=== PATIENT | male | born 1970 | race African-American/Black ===

== ENCOUNTER 2020-11-30 12:14 | Emergency (ER) | payer OTHER, SELFPAY ==
[2020-11-30 12:27] VITALS: BP 117/80; PULSE 68; RESP 16; TEMP 36.2; O2SAT 100
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
== END 2020-11-30 13:28 | disposition home or self-care (01) ==
PROVIDERS: Emergency Provider Registered Nurse
DX: H00.011 Hordeolum externum right upper eyelid (principal)
CPT/HCPCS: 99213; G0463

== ENCOUNTER 2020-12-09 13:30 | Emergency (ER) | payer OTHER, SELFPAY ==
[2020-12-09 14:33] VITALS: BP 138/86; PULSE 66; RESP 16; TEMP 36.5; O2SAT 100
--- NOTE | 2020-12-09 17:14 | PC.NURSE ---
PT LEFT STATING THAT HE HAS WAITED 4 HRS, AND THAT'S CRAZY.
== END 2020-12-09 17:14 | disposition left against medical advice (07) ==
DX: H00.011 Hordeolum externum right upper eyelid (principal)
CPT/HCPCS: 99199

== ENCOUNTER 2022-07-03 08:16 | Emergency (ER) | payer OTHER, SELFPAY ==
[2022-07-03 08:31] VITALS: BP 131/100; PULSE 87; RESP 16; TEMP 36.7; O2SAT 99
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
== END 2022-07-03 09:09 | disposition home or self-care (01) ==
PROVIDERS: Emergency Provider Nurse Practitioner Family
DX: K52.9 Noninfective gastroenteritis and colitis, unspecified (principal)
CPT/HCPCS: 99211; G0463

== ENCOUNTER 2024-11-13 10:13 | Emergency (ER) | payer OTHER, SELFPAY ==
[2024-11-13 10:24] VITALS: BP 146/97; PULSE 77; RESP 16; TEMP 36.7; O2SAT 98
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
== END 2024-11-13 11:00 | disposition home or self-care (01) ==
PROVIDERS: Emergency Provider Nurse Practitioner Family
DX: H00.015 Hordeolum externum left lower eyelid (principal)
CPT/HCPCS: 99213; G0463